=== PATIENT | male | born 1990 | race Caucasian/White ===

== ENCOUNTER → 2019-09-26 09:22 | Outpatient (CLI) | payer BC, SELFPAY ==
--- NOTE | 2019-09-26 09:40 | XR_ITS ---
PROCEDURE: XR FEMUR LT 2V CLINICAL INDICATION: INJURY TO LOWER EXTREMITY Pain following injury COMPARISON: No exams were available for comparison FINDINGS: No fracture or dislocation. No lytic or blastic change. There is normal mineralization. The joint spaces are well-preserved. No significant degenerative/arthritic changes. No erosive changes evident. Other findings:No radiopaque foreign body apparent IMPRESSION: No acute findings. Dictated by: Domenico Ojeda MD 09/26/2019 14:49 Electronically signed by Domenico Ojeda MD in [place] 09/26/2019 14:49
== END ==
PROVIDERS: PCP Nurse Practitioner Family; Visit Provider Nurse Practitioner Family
DX: S89.92XD Unspecified injury of left lower leg, subsequent encounter (principal)
CPT/HCPCS: 73552

== ENCOUNTER → 2020-12-16 11:29 | Outpatient (CLI) | payer BC, SELFPAY | PROVIDERS: PCP Family Medicine; Visit Provider Nurse Practitioner | DX: Z20.822 Contact with and (suspected) exposure to COVID-19 (principal) | CPT/HCPCS: C9803; U0003; U0005 ==

== ENCOUNTER 2021-07-17 09:00 | Emergency (ER) | payer BC, SELFPAY ==
--- NOTE | 2021-07-17 09:04 | XR_ITS ---
PROCEDURE INFORMATION: Exam: XR Right Ankle Exam date and time: 07/17/2021 9:29 AM Age: 30 years old Clinical indication: Injury or trauma; Fall; Swelling (edema); Ankle; Right; Injury date: 07/16/21; Additional info: Fell off ladder -- medial and lateral swelling of ankle TECHNIQUE: Imaging protocol: XR Right ankle. Views: 3 or more views. COMPARISON: No relevant prior studies available. FINDINGS: Bones/joints: 2 mm calcification adjacent to the inferior aspect of the medial malleolus which could represent small avulsion fracture. Anatomic alignment of the ankle mortise. Soft tissues: Prominent soft tissue swelling. IMPRESSION: 1. Prominent soft tissue swelling. 2. 2 mm calcification adjacent to the inferior aspect of the medial malleolus which could represent small avulsion fracture.
[2021-07-17 09:05] VITALS: BP 120/84; PULSE 78; RESP 19; TEMP 36.8; O2SAT 100; BMI 24.4
--- NOTE | 2021-07-17 09:22 | HMH.EDUTC ---
[facility] [place] Clinical Impression: Ankle sprain Qualifiers: Encounter type: initial encounter Involved ligament of ankle: unspecified ligament Laterality: right Qualified Code(s): S93.401A - Sprain of unspecified ligament of right ankle, initial encounter Disposition: Home, Self-Care Condition on Discharge: Good Instructions: How to Use Crutches, How To Perform RICE (Rest, Ice, Compress, Elevate), How to Use a Walking Boot Additional Instructions: *RICE, Rest the extremity, Ice 15-20 minutes 3-4 times daily, Compress- wear the andrew wrap as discussed as much as possible to help reduce swelling and pain, Elevate the extremity when at rest *Walking boot is for support and help control swelling, Be sure that is not to tight but not to loose either Use Crutches to get up and get around *Elevate when resting *Ibuprofen 800 every 6-8 hours as needed for pain an inflammation. If need something more can take Tylenol in between doses of Ibuprofen to help Immediately follow up with your family doctor for new or worsening of symptoms, or no noticeable improvement over the next 3-5 days Follow up with Orthopedics you can call Monday Morning for appointment You may call back to the [facility] later today for the official reading of your xray Return if needed Straight to ER if any life threatening symptoms Prescriptions: Ibuprofen [Ibuprofen 600mg Tablet] 600 mg PO Q8HP PRN #20 tab PRN Reason: Moderate Pain Transmission Status: Received by [facility] #[id number] Referrals: Dion Chew MD [Primary Care Provider] - As needed Forms: Work/School Release Time of Disposition: 09:56 Medical Decision Making - Jermaine Inquiry Pt receiving controlled substance: No Jermaine was queried for this patient: No Vital Signs: 07/17/21 09:05 07/17/21 10:10 Temperature 98.3 F 98.3 F Temperature Source Oral Pulse Rate 78 Pulse Rate [Right Brachial] 78 Respiratory Rate 19 19 Blood Pressure 120/84 Blood Pressure [Right Arm] 120/84 Blood Pressure Mean [Right Arm] 96 Blood Pressure Source [Right Arm] Automatic Cuff Blood Pressure Position [Right Arm] Sitting 02 Sat by Pulse Oximetry 100 Oxygen Delivery Method Room Air - Radiology Data #1 Image(s): Ankle Image Reviewed: Yes I reviewed the patient's radiology image soft tissue swelling with small calcification noted to medial malleolus possible small avulsion fracture Medical Decision Narrative: Patient refused walking boot and crutches [facility] [place] - General Stated complaint: ao fall 07/16, right ankle pain Time Seen by Provider: 07/17/21 09:22 Mode of Arrival: Ambulatory Source of Information: Patient Limitations: No Limitations Description of Symptoms (Recalled from Triage Doc. by RN): PATIENT C/O PAIN AND SWELLING TO RIGHT ANKLE AFTER FALLING OFF LADDER ONTO ANKLE YESTERDAY HEENT Symptoms (Recalled from RN notes): No Resp Symptoms (Recalled from RN notes): No Skin Symptoms (Recalled from RN notes): No MS Symptoms (Recalled from RN notes): Yes Functional Status (Recalled from RN notes): WNL - History of Present Illness Provider Complaint: Patient state that he was on a ladder when the ladder slipped and he fell and twisted his right ankle States that ever since he has been having pain and swelling in his ankle States that this morning he could hardly walk on it so he came in to get it checked - Related Data Previous Rx's Medication Instructions Recorded Ibuprofen [Ibuprofen 600mg 600 mg PO Q8HP PRN #20 tab 07/17/21 Tablet] Allergies Allergy/AdvReac Type Severity Reaction Status Date / Time No Known Allergies Allergy Verified 07/17/21 09:19 - Worker's Comp Is this a Worker's Comp case?: No [facility] History - Hepatitis A Screen Attestation statement:: This patient has been screened for Hepatitis A risk factors. I have reviewed the patient's past medical history: Yes - Social History Alcohol Intake: never Occupational Stat
[2021-07-17 10:10] VITALS: BP 120/84; PULSE 78; RESP 19; TEMP 36.8; O2SAT 100
--- NOTE | 2021-07-17 10:24 | PC.NURSE ---
pt refused walking boot and crutches at this time. states that he will return if needed once radiologist reads xray as something fractured.
== END 2021-07-17 10:15 | disposition home or self-care (01) ==
PROVIDERS: Emergency Provider Nurse Practitioner; PCP Family Medicine
DX: S93.401A Sprain of unspecified ligament of right ankle, initial encounter (principal); Z79.1 Long term (current) use of non-steroidal anti-inflammatories (NSAID); W11.XXXA Fall on and from ladder, initial encounter
CPT/HCPCS: 73610; 99213; G0463

== ENCOUNTER 2023-01-04 08:01 | Emergency (ER) | payer BC, SELFPAY ==
[2023-01-04 08:02] VITALS: BP 135/89; PULSE 121; RESP 18; TEMP 37.2; O2SAT 98; BMI 23.8
--- NOTE | 2023-01-04 08:28 | EXP.UTC ---
Discharge Plan Disposition Patient Disposition: Home, Self-Care Condition: Good Prescriptions Prescriptions: New azithromycin [Zithromax Z-Abhishek] 250 mg tablet See Rx Instructions .ROUTE .COMPLEX 5 Days Qty: 6 0RF Rx Instructions: For 250 mg dose pack: take 500 mg today (day 1), then 250 mg for 4 days (days 2-5) methylprednisolone [Medrol (Abhishek)] 4 mg tablets,dose pack See Rx Instructions .Route .COMPLEX 6 Days Qty: 21 0RF Rx Instructions: taper pack; No Action ibuprofen 600 MG tablet 600 mg PO Q8HP PRN (Reason: Moderate Pain) Qty: 20 0RF Referrals Follow up/Referrals: Socrates Nino MD [Primary Care Provider] - See instructions Activity Restrictions/Add. Instructions Additional Instructions/Restrictions: Go home and take some Benadryl and lay down and try to sleep off headache Take medication as prescribed *Monitor Temp, Over the counter Motrin or Tylenol as directed/as needed Tylenol every 4 hours and Motrin every 6 hours (as long as your family doctor has told you that you can take it) for fever or pain. and straight to ER if unable to lower temp less than 101.0 after medication given *Warm salt water gargles may help to soothe the throat *Throat Lozenges? *Warm fluids like tea with honey may help to soothe the throat? *Sleep elevated *Humidifier/Vaporizer Straight to ER for worse headache of your life Follow up IMMEDIATELY for new or worsening symptoms or no Noticeable improvement over the next 48-72 hours. 911 for difficulty breathing or swallowing You were tested for today for COVID19 your test result should be back in the next 24-48 hours, you may check your results on the [facility] Portal for your results if it is positive you will need to quarantine for 5 days Clinical Impressions Clinical Impression: Sinusitis Qualifiers: Sinusitis location: unspecified location Chronicity: unspecified Qualified Code(s): J32.9 - Chronic sinusitis, unspecified Stand Alone Forms Stand Alone Forms: Work/School Release Instructions Patient Instructions: Sinusitis, DI for Sinusitis, DI for Headache Discharge ED Provider: Mariely Gleason [facility] [place] HPI General Stated complaint: COLLAZO Mode of Arrival: Ambulatory Source of Information: Patient Limitations: No Limitations Time Seen by Provider: 01/04/23 08:28 Description of Symptoms (Recalled from Triage Doc. by RN): COLLAZO since yesterday. It is making him have nausea, and blurred vision. HEENT Symptoms (Recalled from RN notes): Yes Resp Symptoms (Recalled from RN notes): No Skin Symptoms (Recalled from RN notes): No MS Symptoms (Recalled from RN notes): No Functional Status (Recalled from RN notes): n/a History of Present Illness Provider Complaint: Patient states that he didnt feel well with body aches, chills and sore throat over the weekend States that he felt a little better yesterday but started with sinus pressure and headache, States that when he bends over the pressure behind his eyes was worse States that he took some Tylenol and it didnt help but did take some Ibuprofen last night night and it did help with his headache and he was able to sleep and this morning when he woke up he was having chills, body aches and headache again so he came in to get checked out denies blurred vision or vision changes at this time Related Data Previous Rx's Medication Instructions Recorded ibuprofen 600 mg tablet 600 mg PO Q8HP PRN Moderate Pain 07/17/21 #20 tabs azithromycin 250 mg tablet See Rx Instructions PO .COMPLEX 5 01/04/23 (Zithromax Z-Abhishek) days #6 tabs methylprednisolone 4 mg tablets in See Rx Instructions .Route 01/04/23 a dose pack (Medrol (Abhishek)) .COMPLEX 6 days #21 tabs Allergies Allergy/AdvReac Type Severity Reaction Status Date / Time No Known Allergies Allergy Verified 01/04/23 08:25 Worker's Comp Is this a Worker's Comp case?: No [facility] Disclaimer: The information contained in
[2023-01-04 09:32] VITALS: BP 135/89; PULSE 121; RESP 18; TEMP 37.2; O2SAT 98
== END 2023-01-04 09:32 | disposition home or self-care (01) ==
PROVIDERS: Emergency Provider Nurse Practitioner; PCP Family Medicine
DX: J01.90 Acute sinusitis, unspecified (principal)
CPT/HCPCS: 87635; 96372; 99212; 99214; G0463